=== PATIENT | male | born 1975 | race Caucasian/White ===

== ENCOUNTER 2018-06-09 17:52 | Emergency (ER) | payer SELFPAY ==
--- NOTE | 2018-06-09 17:59 | EDM.PDOC ---
ED HPI GENERAL MEDICAL PROBLEM - General Chief Complaint: General Stated Complaint: GENERALIZED Time Seen by Provider: 06/09/18 18:10 Source of Information: Reports: Patient History Limitations: Reports: No Limitations - History of Present Illness INITIAL COMMENTS - FREE TEXT/NARRATIVE: Patient presents to ER with complaints of "a little bit of chest pain, not urinating well. Feels hands are turning barrett. Wondered if I was still alive or if I had a pulse". States he has been hitchhiking. Does not feel too cold, was given a ride here. [place] but "got my maps screwed up". States he thinks his head is opening up. Feels his head has changed shape. He relates that he was told that he was a diabetic when he was incarcerated but he hasn't been on any treatment for this. Was told he had elevated liver enzymes at the last ER he was in but doesn't recall how long ago that was. He thinks he had a rash called "rasp". Patient denies feeling cold or being left out in the cold too long. Had rode on a bus from [place] to [place] looking for work and has been catching rides since that time. He states he had 2 cups of Ramen noodles today. Admits to mild chest pain. Feels his "urine isn't working right". No shortness of breath. Denies nausea or vomiting. Thought his hands were turning barrett. Onset: Today Duration: Hour(s): Location: Reports: Generalized Improves with: Reports: None Worsens with: Reports: None Context: Denies: Trauma Associated Symptoms: Reports: Confusion, Chest Pain. Denies: Cough, Fever/ Chills, Loss of Appetite, Nausea/Vomiting, Shortness of Breath, Syncope, Weakness - Related Data Allergies Allergy/AdvReac Type Severity Reaction Status Date / Time No Known Allergies Allergy Verified 06/09/18 18:00 Home Meds: Home Meds . [No Known Home Meds] 05/11/18 [History] Past Medical History Other Gastrointestinal History: states rectal leakage Other Genitourinary History: states "peeing isn't right" Other Musculoskeletal History: chronic neck pain Psychiatric History: Reports: Anxiety Endocrine/Metabolic History: Reports: Diabetes, Type II Other Dermatologic History: c/o bugs crawling on him Social & Family History - Family History Family Medical History: Noncontributory - Tobacco Use Smoking Status *Q: Never Smoker - Caffeine Use Caffeine Use: Reports: None ED ROS GENERAL - Review of Systems Review Of Systems: See Below Constitutional: Reports: Malaise. Denies: Fever, Chills, Decreased Appetite HEENT: Denies: Ear Pain, Sinus Problem, Throat Pain, Vertigo Respiratory: Denies: Shortness of Breath Cardiovascular: Reports: Chest Pain. Denies: Edema, Lightheadedness Endocrine: Denies: Fatigue GI/Abdominal: Denies: Abdominal Pain, Nausea, Vomiting : Reports: Urinary Retention Musculoskeletal: Reports: No Symptoms Skin: Reports: Change in Color, Other ("barrett hands"). Denies: Rash Neurological: Reports: Confusion (states has been hitch hiking and got messed up.) ED EXAM, GENERAL - Physical Exam Exam: See Below General Appearance: Alert, WD/WN Ears: Normal External Exam, Normal TMs Nose: Normal Inspection, Normal Mucosa, No Blood Throat/Mouth: Normal Inspection, Normal Oropharynx Head: Normocephalic Respiratory/Chest: No Respiratory Distress, Lungs Clear, Normal Breath Sounds Cardiovascular: Regular Rate, Rhythm, No Edema GI/Abdominal: Normal Bowel Sounds, Soft, Non-Tender Extremities: Normal Inspection, Normal Capillary Refill Neurological: Alert, Oriented (person only) Skin Exam: Warm, Dry Course - Vital Signs Last Recorded V/S: Last Vital Signs Temp 96.1 F 06/09/18 17:54 Pulse 72 06/09/18 17:54 Resp 20 06/09/18 17:54 BP 121/68 06/09/18 17:54 Pulse Ox 99 06/09/18 17:54 - Orders/Labs/Meds Orders: Active Orders 24 hr Category Date Time Status Chest 2V [CR] Stat Exams 06/09/18 18:19 Taken EKG 12 Lead [EK] Stat Ther 06/09/18 18:04 Ordered Labs: Laboratory Tests 06/09/18 06/09/18 06/09/18 Range/Units 18:04 18:15 18:37 WBC 4.8 L (5.0-10.0) 10^3/uL RBC 4.57 (4.50-6.00) 10^6/uL Hgb 14.9 (14.0-18.0) g/dL Hct 44.8 (40.0-54.0) % MCV 98.0 H (82.0-94.0) fL MCH 32.6 H (27.0-32.0) pg MCHC 33.3 (33.0-38.0) g/dL RDW Coeff of Emanuel 12.8 (11.0-15.0) % Plt Count 258 (150-400) 10^3/uL Neut % (Auto) 48.3 (35-85) % Lymph % (Auto) 31.8 (10-55) % [place] % (Auto) 11.6 (0-16) % Eos % (Auto) 7.3 H (0-5) % Baso % (Auto) 1.0 (0-3) % Neut # (Auto) 2.32 (1.80-7.00) 10^3/uL Lymph # (Auto) 1.53 (1.00-4.80) 10^3/uL [place] # (Auto) 0.56 (0.00-0.80) 10^3/uL Eos # (Auto) 0.35 (0.00-0.45) 10^3/uL Baso # (Auto) 0.05 10^3/uL Sodium (136-145) mEq/L Potassium (3.5-5.0) mEq/L Chloride (98-106) mEq/L Carbon Dioxide (21-32) mmol/L BUN (7-18) mg/dL Creatinine (0.7-1.3) mg/dL Est Cr Clr Drug Dosing mL/min Estimated GFR (MDRD) (>=60) mL/min Glucose (75-99) mg/dL Calcium (8.4-10.1) mg/dL Total Bilirubin (0.0-1.0) mg/dL AST (15-37) U/L ALT (12-78) U/L Alkaline Phosphatase (46-116) U/L Lactate Dehydrogenase (100-190) U/L Creatine Kinase (35-232) U/L Troponin I (0.00-0.06) ng/mL C-Reactive Protein (0.2-0.8) mg/dL Total Protein (6.4-8.2) g/dL Albumin (3.4-5.0) g/dL Urine Color Yellow (YELLOW) Urine Appearance Clear (CLEAR) Urine pH 7.5 (4.5-8.0) Ur Specific [place] 1.020 (1.003-1.020) Urine Protein Negative (NEGATIVE) mg/dL Urine Glucose (UA) Negative (NEGATIVE) mg/dL Urine Ketones Negative (NEGATIVE) mg/dL Urine Occult Blood Negative (NEGATIVE) Urine Nitrite Negative (NEGATIVE) Urine Bilirubin Negative (NEGATIVE) Urine Urobilinogen 4.0 H (0.2-1.0) EU/dL Ur Leukocyte Esterase Negative (NEGATIVE) Urine RBC Not seen (0-5) /HPF Urine WBC Not seen (0-5) /HPF Urine Opiates Screen Negative (NEGATIVE) Ur Oxycodone Screen Negative (NEGATIVE) Urine Methadone Screen Negative (NEGATIVE) Ur Barbiturates Screen Negative (NEGATIVE) U Tricyclic Antidepress Negative (NEGATIVE) Ur Phencyclidine Scrn Negative (NEGATIVE) Ur Amphetamine Screen Negative (NEGATIVE) U Methamphetamines Scrn Negative (NEGATIVE) Urine MDMA Screen Negative (NEGATIVE) U Benzodiazepines Scrn Negative (NEGATIVE) Urine Cocaine Screen Negative (NEGATIVE) U Marijuana (THC) Screen Negative (NEGATIVE) 06/09/18 Range/Units 18:37 WBC (5.0-10.0) 10^3/uL RBC (4.50-6.00) 10^6/uL Hgb (14.0-18.0) g/dL Hct (40.0-54.0) % MCV (82.0-94.0) fL MCH (27.0-32.0) pg MCHC (33.0-38.0) g/dL RDW Coeff of Emanuel (11.0-15.0) % Plt Count (150-400) 10^3/uL Neut % (Auto) (35-85) % Lymph % (Auto) (10-55) % [place] % (Auto) (0-16) % Eos % (Auto) (0-5) % Baso % (Auto) (0-3) % Neut # (Auto) (1.80-7.00) 10^3/uL Lymph # (Auto) (1.00-4.80) 10^3/uL [place] # (Auto) (0.00-0.80) 10^3/uL Eos # (Auto) (0.00-0.45) 10^3/uL Baso # (Auto) 10^3/uL Sodium 140 (136-145) mEq/L Potassium 3.9 (3.5-5.0) mEq/L Chloride 104 (98-106) mEq/L Carbon Dioxide 30 (21-32) mmol/L BUN 22 H (7-18) mg/dL Creatinine 0.8 (0.7-1.3) mg/dL Est Cr Clr Drug Dosing 127.18 mL/min Estimated GFR (MDRD) > 60 (>=60) mL/min Glucose 80 (75-99) mg/dL Calcium 8.5 (8.4-10.1) mg/dL Total Bilirubin 0.6 (0.0-1.0) mg/dL AST 36 (15-37) U/L ALT 37 (12-78) U/L Alkaline Phosphatase 70 (46-116) U/L Lactate Dehydrogenase 182 (100-190) U/L Creatine Kinase 288 H (35-232) U/L Troponin I < 0.017 (0.00-0.06) ng/mL C-Reactive Protein 0.4 (0.2-0.8) mg/dL Total Protein 7.0 (6.4-8.2) g/dL Albumin 3.7 (3.4-5.0) g/dL Urine Color (YELLOW) Urine Appearance (CLEAR) Urine pH (4.5-8.0) Ur Specific [place] (1.003-1.020) Urine Protein (NEGATIVE) mg/dL Urine Glucose (UA) (NEGATIVE) mg/dL Urine Ketones (NEGATIVE) mg/dL Urine Occult Blood (NEGATIVE) Urine Nitrite (NEGATIVE) Urine Bilirubin (NEGATIVE) Urine Urobilinogen (0.2-1.0) EU/dL Ur Leukocyte Esterase (NEGATIVE) Urine RBC (0-5) /HPF Urine WBC (0-5) /HPF Urine Opiates Screen (NEGATIVE) Ur Oxycodone Screen (NEGATIVE) Urine Methadone Screen (NEGATIVE) Ur Barbiturates Screen (NEGATIVE) U Tricyclic Antidepress (NEGATIVE) Ur Phencyclidine Scrn (NEGATIVE) Ur Amphetamine Screen (NEGATIVE) U Methamphetamines Scrn (NEGATIVE) Urine MDMA Screen (NEGATIVE) U Benzodiazepines Scrn (NEGATIVE) Urine Cocaine Screen (NEGATIVE) U Marijuana (THC) Screen (NEGATIVE) - Re-Assessments/Exams Free Text/Narrative Re-Assessment/Exam: 06/09/18 19:08 Patient is restless but wanting to be discharged, "will camp out like he always does". Offered him a ride by [place] [employer] police. Will take him to [facility] and " he will figure out a plan from there". Given a sandwich and juice. States will call back to family for money/advice when getting to [place]. Departure - Departure Time of Disposition: 19:09 Disposition: Home, Self-Care 01 Condition: Good Clinical Impression: Atypical chest pain - Discharge Information Referrals: PCP,None [Primary Care Provider] - Forms: ED Department Discharge Additional Instructions: 1. Push fluids 2. Follow up if any concerns. - My Orders Last 24 Hours: My Active Orders 06/09/18 18:04 EKG 12 Lead [EK] Stat 06/09/18 18:19 Chest 2V [CR] Stat - Assessment/Plan Last 24 Hours: My Active Orders 06/09/18 18:04 EKG 12 Lead [EK] Stat 06/09/18 18:19 Chest 2V [CR] Stat
[2018-06-09 19:02] LABS: CHLORIDE,CL 104 mEq/L (98-106); SODIUM,NA 140 mEq/L (136-145)
== END 2018-06-09 19:15 | disposition home or self-care (01) ==
LOC: CC.ED 17:52
DX: R07.89 Other chest pain (principal); E11.9 Type 2 diabetes mellitus without complications
CPT/HCPCS: 36415; 71046; 80053; 80305-QW; 81001; 82550; 83615; 84484; 85025; 86140; 93005; 99283